=== PATIENT | female | born 1935 | race Two or more races ===

== ENCOUNTER 2017-01-06 20:19 | Inpatient (IN) | payer OTHER ==
--- NOTE | ~2017-01-06 | CT16 ---
[facility] RADIOLOGY TEXT RESULTS PATIENT: QUINCY DORMAN LOCATION: [facility] 575-01 : 35 UNIT #: [id number] AGE: [address]: Nancie Giraldo MD SEX: F ORDER DR: [id number] [facility] [address] [place], [place] [address] [id number] E MR#: [id number] #: [id number] NAME: QUINCY DORMAN : 1935 SEX: F STUDY DATE/TIME: 01/07/2017 7:19 UNIT: [facility] ROOM: STUDY DESCRIPTION: CT Angio Chest for PE Attending Physician: Santino Solomon D.O. Ordering Physician: Mila Sarmiento M.D. Primary Care Physician: [facility] MEDICAL IMAGING REPORT This report is preliminary unless electronic signature is present EXAM CTA chest with contrast PE protocol, 01/07/2017. HISTORY 81-year-old female with hemoptysis for 2 days. COMPARISON None TECHNIQUE Helical scan performed through the chest following the timed bolus administration of IV contrast per PE protocol. Coronal 3-D MIP reconstructions. Sagittal reformatted images. This CT exam was performed with one or more of the following radiation dose reduction techniques: automatic exposure control, adjustment of mA and/or kV according to patient size, and iterative reconstruction. FINDINGS There is adequate opacification of the pulmonary arteries with no filling defects noted. There is mild ectasia of the ascending thoracic aorta measuring 4 cm. Cardiomegaly. No pericardial effusion. No pleural effusions. No pneumothorax. There is some mild emphysematous and chronic fibrotic changes noted in both lungs. Mild dependent bibasilar atelectasis. No focal infiltrates. Incidental scanning through the upper abdomen demonstrates cholecystectomy. No acute bony abnormality. IMPRESSION 1. Negative for pulmonary emboli. 2. Mild ectasia of the ascending thoracic aorta measuring 4 cm. [facility] RADIOLOGY TEXT RESULTS PATIENT: QUINCY DORMAN LOCATION: [facility] 575 : 35 UNIT #: [id number] AGE: [address]: Nancie Giraldo MD SEX: F ORDER DR: 3. Cardiomegaly. 4. Mild chronic-appearing emphysematous and fibrotic changes in both lungs. No focal pulmonary infiltrates. 5. Cholecystectomy. Dictated by... Selwyn Izquierdo M.D. THIS IS AN ELECTRONICALLY VERIFIED REPORT Selwyn Izquierdo M.D. at 01/08/2017 6:20 AM AYO/sayra TD: 01/07/2017 09:32 JOB #: [id number] MEDICAL IMAGING REPORT Page 1 of 1 COPY
--- NOTE | ~2017-01-06 | CO ---
Unit #: [id number] #: [id number] Patient: QUINCY DORMAN [id number] [facility] [address] [facility] [place], [place] [address] [id number] I MR#: [id number] NAME: QUINCY DORMAN ROOM: 575 Age: 81 Sex: F Admission Date: 01/07/2017 : 1935 Attending Physician: Nancie Giraldo M.D. Primary Care Physician: [facility] Consultation Date: 01/07/2017 CONSULTATION REPORT HISTORY OF PRESENT ILLNESS This is an 81-year-old [place] female patient, developed cough with a bloody mucus for over last few days. She also complained of epigastric pain, which is radiated to the substernal area, described as a moderately severe squeezing pain. It did not radiate to arm or neck. She has a history of chronic atrial fibrillation. The patient has a permanent pacemaker by Dr. Torres in 12/2008. She had a generator change in 08/2016. She has hypertension. No history of previous myocardial infarction or congestive heart failure. No history of rheumatic fever or congenital heart disease. PERSONAL HISTORY She is a nonsmoker. FAMILY HISTORY Negative for premature coronary artery disease or sudden . ALLERGIES Lisinopril. PAST SURGICAL HISTORY Bilateral cataract surgery, cholecystectomy, and pacemaker. HOME MEDICATIONS Include oyster shell, amlodipine, aspirin, Eliquis, Toprol-XL, K-Dur, and Lasix. REVIEW OF SYSTEMS No fever, chills, night sweats, or weight loss. All other is negative except as mentioned above. PHYSICAL EXAMINATION VITAL SIGNS: Blood pressure is 161/102, heart rate 73 per minute, respiratory rate 15 per minute. GENERAL APPEARANCE: The patient is well developed. HEENT: Oral mucosa without cyanosis or pallor. No xanthelasma. NECK: No JVD. CARDIOVASCULAR: Irregular rate and rhythm. PMI is nondisplaced on auscultation. S1 and S2 normal. No S3, S4, murmur, rubs, or clicks noted. VASCULAR: Carotid pulses are brisk without bruit. Abdominal aorta without bruit. Femoral and pedal pulses are normal with normal pulse amplitude. LUNGS: Clear to auscultation without rales, rhonchi, or wheezes. No accessory muscle use noted. Unit #: [id number] #: [id number] Patient: QUINCY DORMAN ABDOMEN: Soft and nontender. No hepatosplenomegaly. RECTAL: Deferred. EXTREMITIES: Warm and dry. No cyanosis or clubbing. No pedal edema. MUSCULOSKELETAL: No scoliosis. DERMATOLOGIC: No stasis dermatitis. NEUROLOGIC: Alert and oriented x3. Pleasant affect. DIAGNOSTIC STUDIES LABORATORY RESULTS: Glucose 98, BUN 13, creatinine 0.8, sodium 135, potassium 3.6. Troponin 0.05. WBC 6.1, hemoglobin 14.4, hematocrit 44.6, and platelet count 112,000. IMAGING STUDIES: Chest x-ray; mild interstitial edema, stable cardiomegaly. CT angiogram of the chest; negative for pulmonary embolism. IMPRESSION 1. Cough with a bloody mucus, possible bronchitis. 2. Chest pain, rule out coronary artery disease. 3. Chronic atrial fibrillation. 4. Sick sinus syndrome. 5. History of pacemaker. 6. Hypertension. PLAN We will get an echocardiogram. The patient will be treated with diuretics. We will schedule her for a Lexiscan Cardiolite study in the morning. Thank you for letting me participate in her care. Dictated by... Isac Finney M.D. JAS/tracy TD: 01/07/2017 22:24 JOB #: [id number] CONSULTATION REPORT Page 1 of 1 X Isac Finney MD CONSULTATION REPORT
--- NOTE | ~2017-01-06 | HP ---
Unit #: [id number] #: [id number] Patient: QUINCY DORMAN [id number] [address] [address] [id number] I MR#: [id number] NAME: QUINCY DORMAN ROOM: 30172 Age: 81 Sex: F Admission Date: 01/07/2017 : 1935 Attending Physician: Marissa Dixon M.D. Primary Care Physician: [facility] HISTORY AND PHYSICAL CHIEF COMPLAINT Coughing up blood. 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 The patient presented to the emergency room complaining of coughing up blood associated with chest pain. The patient also complains of headache and cramps in the legs and in the hands. The chest pain has been present for the last few days and has been intermittent and gradually worsening. The patient denies any diaphoresis, shortness of breath or palpitations. PAST MEDICAL HISTORY History of hypertension, migraine, atrial fibrillation. PAST SURGICAL HISTORY History of cholecystectomy, pacemaker placement for bradycardia, cataract surgery, eye surgery. SOCIAL HISTORY The patient denies using tobacco, alcohol or any illicit drug abuse. FAMILY HISTORY Positive for congestive heart failure and aneurysm. ALLERGIES Lisinopril. HOME MEDICATIONS 1. Norvasc. 2. Aspirin. 3. Toprol. 4. Eliquis. 5. K-Dur. 6. Oyster shell. 7. Lasix. REVIEW OF SYSTEMS A 14-point review of systems was performed and only pertinent positive findings are described above. Remaining are negative. PHYSICAL EXAMINATION Unit #: [id number] #: [id number] Patient: QUINCY DORMAN GENERAL APPEARANCE: The patient is lying on a bed not in acute distress. VITAL SIGNS: Temperature 98.4. Pulse 83. Respiratory rate 14. Blood pressure 166/89. Sating 100% at room air. HEENT: Head: Atraumatic, normocephalic. ENT: Pupils equal, round, reacting to light and accommodation. Extraocular movements are intact. NECK: Supple. LUNGS: Decreased air entry at the bases. HEART: (1) rate and rhythm. Positive for murmur. ABDOMEN: Soft. Positive bowel sounds. EXTREMITIES: No cyanosis. No clubbing. NEUROLOGIC: Alert, awake, oriented. No gross focal motor deficit. DIAGNOSTIC STUDIES LABORATORY: Glucose 98, BUN 13, creatinine 0.8, sodium 135, potassium 3.6, chloride 100, bicarb 27, calcium 9.1. BNP 353. Troponin less than 0.03. INR is one. WBC 6.1, hemoglobin 14.4, hematocrit 44.6, platelets 112. UA shows 1+ protein and 0.2 urobilinogen. IMAGING: Chest x-ray shows stable cardiomegaly, mildly increased interstitial markings suggesting a component of mild interstitial edema. CT of the chest shows negative for PE, mild ectasia of the ascending thoracica aorta measuring 4 cm, cardiomegaly and mild chronic appearing emphysematous and fibrotic change in both lungs. No focal pulmonary infiltrate and cholecystectomy. CARDIOVASCULAR: The EKG shows atrial fibrillation. ASSESSMENT 1. Chest pain. 2. Hemoptysis. 3. Atrial fibrillation. PLAN To admit the patient to observation. Continue with the repeat serial troponins and Cardiology consult for the stress test in the morning. Eliquis will be on hold and we will have the Flexeril for the cramps. Further recommendations will follow. Dictated by Farzana Willett TD: 01/07/2017 16:54 JOB #: [id number] HISTORY AND PHYSICAL Page 1 of 1 X X HISTORY AND PHYSICAL
--- NOTE | ~2017-01-06 | CR72 ---
[facility] A Service of [facility] RADIOLOGY TEXT RESULTS PATIENT: QUINCY DORMAN LOCATION: [facility] 575-01 : 35 UNIT #: [id number] AGE: [address]: CHUCK GRAYSON MD SEX: F ORDER DR: [id number] [facility] [address] [place], [place] [address] [id number] E MR#: [id number] Acc #: [id number] NAME: QUINCY DORMAN : 1935 SEX: F STUDY DATE/TIME: 01/07/2017 3:49 UNIT: [facility] ROOM: STUDY DESCRIPTION: CR Chest Single View Portable Attending Physician: Santino Solomon D.O. Ordering Physician: Mila Sarmiento M.D. Primary Care Physician: [facility] MEDICAL IMAGING REPORT This report is preliminary unless electronic signature is present EXAM Single view chest. INDICATION Shortness of air and cough. 3-day duration. Hemoptysis. FINDINGS Heart is mildly enlarged. Central pulmonary vasculature is slightly more prominent. No dense consolidation. No pneumothorax or significant pleural effusion. IMPRESSION 1. Stable cardiomegaly. 2. Mildly increased interstitial markings suggesting a component of mild interstitial edema. Dictated by... Raffaele Lynne M.D. THIS IS AN ELECTRONICALLY VERIFIED REPORT Raffaele Lynne M.D. at 01/07/2017 11:10 PM ALAN/sayra TD: 01/07/2017 08:16 JOB #: [id number] MEDICAL IMAGING REPORT Page 1 of 1 COPY
--- NOTE | ~2017-01-06 | ST ---
Unit #: [id number] #: [id number] Patient: QUINCY DORMAN [id number] [address] [address] [id number] I MR#: [id number] NAME: QUINCY DORMAN : 1935 SEX: F STUDY DATE/TIME: 01/10/2017 UNIT: [facility] ROOM: 575 STUDY DESCRIPTION: Stress test Attending Physician: Popeye Loza M.D. Primary Care Physician: [facility] CARDIOLOGY REPORT EXAM Combined EKG as well as nuclear part of the test. FINDINGS Patient's baseline heart rate is 79 beats per minute. Blood pressure is 170/97. Patient received Lexiscan infusion as per protocol. At peak infusion, heart rate 100 beats per minute and blood pressure 166/88. Patient's baseline EKG showing sinus rhythm with nonspecific ST and T changes. During Lexiscan infusion and recovery, no further ST and T changes. Patient also received 10.46 mCi of Cardiolite at rest and 30.4 mCi of Cardiolite during stress. Both sets of images were compared. Patient shows fairly uniform uptake of radiotracer. No defect was noted. Patient also had gated SPECT scan done, which showed normal LV size and function. No wall motion abnormality detected. Ejection fraction is 67%. INTERPRETATION OF THE TEST 1. EKG part of the test is negative for Lexiscan-induced ischemia. 2. Nuclear part of the test negative for myocardial ischemia. 3. Gated SPECT scan shows normal LV size and function. Ejection fraction 67%. Dictated by... Farzana Frye/bob TD: 01/11/2017 07:36 JOB #: [id number] CARDIOLOGY REPORT Page 1 of 1 X Don Lau MD CARDIOLOGY REPORT
--- NOTE | ~2017-01-06 | TH ---
Unit #: [id number] #: [id number] Patient: QUINCY DORMAN [id number] [address] [address] [id number] I MR#: [id number] NAME: QUINCY DORMAN : 1935 SEX: F STUDY DATE/TIME: 01/10/2017 UNIT: [facility] ROOM: 575 STUDY DESCRIPTION: Cardiolite stres test Attending Physician: Popeye Loza M.D. Primary Care Physician: [facility] CARDIOLOGY REPORT EXAM Cardiolite stress test. FINDINGS Result text under stress test. Please see this report for result text. Dictated by... Farzana Frye/bob TD: 01/11/2017 07:48 JOB #: [id number] CARDIOLOGY REPORT Page 1 of 1 X Don Lau MD CARDIOLOGY REPORT
--- NOTE | ~2017-01-06 | EKG ---
PATIENT: QUINCY DORAMN UNIT #: [id number] Ventricular Rate: 81 BPM Atrial Rate: 54 BPM QRS Duration: 86 ms Q-T Interval: 362 ms QTC Calculation(Bezet): 420 ms Calculated R [place]: 25 degrees Calculated T [place]: -3 degrees Diagnosis Line: Atrial fibrillation Diagnosis Line: Abnormal ECG Diagnosis Line: When compared with ECG of 03-NOV-2015 05:26, Diagnosis Line: Electronic demand pacing is no longer Present Diagnosis Line: Confirmed by MOLLY SHELTON MD ([id number]) on Diagnosis Line: 01/07/2017 4:31:15 PM INTERPRETING MD: NIKITA NEVAREZ
--- NOTE | ~2017-01-06 | DS ---
Unit #: [id number] #: [id number] Patient: QUINCY DORMAN [id number] [facility]. [place], [place] [address] [id number] I MR#: [id number] NAME: QUINCY DORMAN ROOM: 575 Age: 81 Sex: F Admission Date: 01/07/2017 : 1935 Discharge Date: 01/11/2017 Attending Physician: Popeye Loza M.D. Primary Care Physician: [facility] DISCHARGE SUMMARY REASON FOR ADMISSION Coughing up blood. HISTORY OF PRESENT ILLNESS/HOSPITAL COURSE The patient is a very pleasant 81-year-old female originally from [facility] [facility], who speaks very little Swazi. 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 She presented to the emergency department complaining of coughing up blood associated with chest pain and/or discomfort. She was seen and evaluated initially secondary to hemoptysis as well as chest discomfort. She underwent a CT angiogram chest PE protocol which did not reveal any pulmonary emboli. There were no focal pulmonary infiltrates which were noted. Chronic-appearing emphysematous and fibrotic changes were noted. Her initial creatinine was normal at 0.8. We placed consultation to Cardiology services in regards to the same. Cardiology services saw and evaluated the patient. They recommended stress Cardiolite examination. The patient did undergo this on January 10, 2017, which was negative for myocardial ischemia, ejection fraction was noted to be 67%. Please note [facility] Cardiology was consulted to read the same. Secondary to IV contrast used for this CTA chest, the patient did have an increase in her creatinine level with peak creatinine of 1.7; therefore, she was kept in the hospital receiving IV fluids. This morning, her creatinine now stands at 0.8 and her acute kidney injury now appears to be resolved. She has been cleared from a cardiac standpoint for discharge. At the time of discharge, decision in regards to anticoagulation will be deferred to [facility] Cardiology. They will see the patient later this afternoon. FINAL DISCHARGE DIAGNOSES 1. Hemoptysis, now resolved. 2. Chest pain, cardiac ischemia ruled out, pulmonary embolus ruled out. 3. Acute kidney injury secondary to IV contrast, now resolved. 4. History of hypertension. Unit #: [id number] #: [id number] Patient: QUINCY DORMAN 5. Prior history of pacemaker placement. FINAL DISCHARGE MEDICATIONS 1. Metoprolol XL 50 mg p.o. b.i.d. 2. Aspirin 81 mg daily. 3. Os-Charles Plus-D 500 mg p.o. q. day. 4. Tylenol 650 mg p.o. q.6 p.r.n. 5. Decision for anticoagulation currently pending cardiac evaluation. DISCHARGE DISPOSITION Home. Follow-up PCP in 7-10 days for repeat BMP as well as CBC. At the time of discharge, patient's hemoglobin 13.8, creatinine 0.9. Dictated by... Farzana Lawrence/srikanth TD: 01/11/2017 23:34 JOB #: [id number] DISCHARGE SUMMARY Page 1 of 1 X Popeye Loza MD X DISCHARGE SUMMARY
[~2017-01-06 20:19] MED LIST: ADOXA PAK100 MG PO; AMLODIPINE BESY10 MG PO; ASPIRIN81 M2 PO; ATENOLOL25 GM MC; CALCIUM 600 +1 EA15 PO; CLONIDINE HCL0.1 M1; ELIQUIS5 MG PO; K-DUR20 ME1 PO; LASIX PO; LASIX20 MG PO; TOPROL XL PO
[2017-01-07 03:57] LABS: BASOPHIL% 0.3 % (0-2.5); EOSINOPHIL# 0.2 X10e3 (0-0.7); EOSINOPHIL% 2.5 % (0.0-7.0); HEMATOCRIT 44.6 % (35.0-45.0); HEMOGLOBIN 14.4 gm/dL (12.0-16.0); LYMPHOCYTE# 2.2 X10e3 (1.0-3.5); LYMPHOCYTE% 35.6 % (17.0-45.0); MEAN CELL VOLUME 95.4 FL (83-96); MEAN CORPUSCULAR HEMOGLOBIN 30.7 PG (28-34); MEAN CORPUSCULAR HGB CONC 32.2 g/dL (30-36); MEAN PLATELET VOLUME 11.1 FL (6.5-11.5); MONOCYTE# 0.8 X10e3 (0-1.0); MONOCYTE% 12.3 % (3.0-12.0); NEUTROPHIL% 49.3 % (40-75); PLATELET COUNT 112 X10e3 (140-420); RED BLOOD COUNT 4.68 X10e (3.90-5.30); RED CELL DISTRIBUTION WIDTH 13.5 % (11.0-15.5); WHITE BLOOD COUNT 6.1 X10e3 (4.0-10.5)
[2017-01-07 04:00] LABS: DIFF IND NO
[2017-01-07 04:12] LABS: PROTHROMBIN TIME (PATIENT) 10.9 SECONDS (9.6-11.5)
[2017-01-07 04:13] LABS: POC - CKMB 4.3 ng/mL (0.0-7.9); POC - TROPONIN <0.05 ng/mL (<=0.05)
[2017-01-07 04:23] LABS: BUN/CREATININE RATIO 16.25; CALCIUM SERUM 9.1 mg/dL (8.4-10.2); CREATININE SERUM 0.8 mg/dL (0.6-1.4); GLOM FILT RATE Estimated 69.2 mL/min (>60); POTASSIUM 3.6 mmol/L (3.5-5.1)
[2017-01-07 14:19] LABS: URINE SOURCE CLEAN CATCH
[2017-01-07 14:25] LABS: URINE APPEARANCE CLEAR; URINE BILIRUBIN NEG (NEG); URINE BLOOD TRACE (NEG); URINE COLOR YELLOW; URINE GLUCOSE NEG (NEG); URINE KETONE NEG (NEG); URINE LEUKOCYTE ESTERASE NEG (NEG); URINE NITRATE NEG (NEG); URINE PH 5.5 (5-8); URINE PROTEIN 1+ (NEG); URINE SPECIFIC GRAVITY 1.011 (1.003-1.035); URINE UROBILINOGEN 0.2 MG/DL (NEG)
[2017-01-07 14:27] LABS: U HYALINE CASTS AUWI 0-2 /[LPF]; URBCS1 AUWI 0-2 /[HPF] (0-2); URINE BACTERIA AUWI NEG (NEGATIVE); URINE SQUAMOUS EPITHELIAL CELL NONE SEEN /[HPF]; UWBCS1 AUWI 0-2 (0-5)
[2017-01-07 14:32] LABS: CULTURE INDICATED? NO
[2017-01-07 15:18] LABS: ALBUMIN SERUM 4.3 g/dL (3.5-5.0); BILIRUBIN, DIRECT 0.2 mg/dL (0.0-0.2); BILIRUBIN,INDIRECT 1.7 mg/dL (0.0-0.9); BILIRUBIN,TOTAL 1.9 mg/dL (0.2-2.0); PROTEIN TOTAL SERUM 8.4 g/dL (6.0-8.3)
[2017-01-07 15:19] LABS: MB 6.4 ng/ml
[2017-01-07 21:26] LABS: %MB 3.4 % (0.0-4.0); MB 6.7 ng/ml
[2017-01-08 06:39] LABS: BASOPHIL% 0.3 % (0-2.5); EOSINOPHIL# 0.1 X10e3 (0-0.7); EOSINOPHIL% 1.3 % (0.0-7.0); HEMATOCRIT 42.9 % (35.0-45.0); HEMOGLOBIN 13.8 gm/dL (12.0-16.0); LYMPHOCYTE# 2.1 X10e3 (1.0-3.5); LYMPHOCYTE% 30.9 % (17.0-45.0); MEAN CELL VOLUME 94.8 FL (83-96); MEAN CORPUSCULAR HEMOGLOBIN 30.6 PG (28-34); MEAN CORPUSCULAR HGB CONC 32.2 g/dL (30-36); MONOCYTE# 0.9 X10e3 (0-1.0); NEUTROPHIL# 3.8 X10e3 (1.5-7.1); NEUTROPHIL% 54.5 % (40-75); PLATELET COUNT 117 X10e3 (140-420); RED BLOOD COUNT 4.52 X10e (3.90-5.30); RED CELL DISTRIBUTION WIDTH 13.5 % (11.0-15.5); WHITE BLOOD COUNT 6.9 X10e3 (4.0-10.5)
[2017-01-08 06:42] LABS: DIFF IND NO
[2017-01-08 07:03] LABS: BUN/CREATININE RATIO 16.25; CALCIUM SERUM 9.5 mg/dL (8.4-10.2); CREATININE SERUM 1.6 mg/dL (0.6-1.4); GLOM FILT RATE Estimated 29.9 mL/min (>60); POTASSIUM 4.2 mmol/L (3.5-5.1)
[2017-01-09 07:42] LABS: BUN/CREATININE RATIO 22.94; CALCIUM SERUM 9.9 mg/dL (8.4-10.2); CREATININE SERUM 1.7 mg/dL (0.6-1.4); GLOM FILT RATE Estimated 27.8 mL/min (>60); MAGNESIUM 1.9 mg/dL (1.6-3.0)
[2017-01-09 12:04] LABS: BASOPHIL% 0.6 % (0-2.5); EOSINOPHIL# 0.1 X10e3 (0-0.7); EOSINOPHIL% 1.9 % (0.0-7.0); HEMATOCRIT 42.5 % (35.0-45.0); HEMOGLOBIN 13.8 gm/dL (12.0-16.0); LYMPHOCYTE# 2.1 X10e3 (1.0-3.5); LYMPHOCYTE% 35.3 % (17.0-45.0); MEAN CELL VOLUME 94.7 FL (83-96); MEAN CORPUSCULAR HEMOGLOBIN 30.8 PG (28-34); MEAN CORPUSCULAR HGB CONC 32.5 g/dL (30-36); MEAN PLATELET VOLUME 11.1 FL (6.5-11.5); MONOCYTE# 0.8 X10e3 (0-1.0); NEUTROPHIL% 49.2 % (40-75); PLATELET COUNT 114 X10e3 (140-420); RED BLOOD COUNT 4.49 X10e (3.90-5.30); RED CELL DISTRIBUTION WIDTH 13.5 % (11.0-15.5)
[2017-01-09 12:06] LABS: DIFF IND NO
[2017-01-11 06:07] LABS: BUN/CREATININE RATIO 21.11; CALCIUM SERUM 8.6 mg/dL (8.4-10.2); CREATININE SERUM 0.9 mg/dL (0.6-1.4); POTASSIUM 4.2 mmol/L (3.5-5.1)
[2017-01-11] MEDS ORDERED: ACETAMINOPHEN PO (11:24)
== END 2017-01-11 16:21 | disposition home or self-care (01) | DRG 683 ==
LOC: CED 20:19 → CFTX 01-07 01:35 → C5C 01-07 10:15 → CED 01-07 10:15 → C5C 01-07 10:15 → CEDOF 01-07 10:15 → CED 01-07 10:43 → C5C 01-07 17:57 → CEDOF 01-07 17:57 → C5C 01-08 05:38
PROVIDERS: Emergency Medicine; Family Medicine; Internal Medicine; Internal Medicine Cardiovascular Disease
PROC: B246YZZ Ultrasonography of Right and Left Heart using Other Contrast (ICD-10-PCS; principal; 2017-01-07)
PROC: B32TYZZ Computerized Tomography (CT Scan) of Left Pulmonary Artery using Other Contrast (ICD-10-PCS; 2017-01-09)
PROC: B32SYZZ Computerized Tomography (CT Scan) of Right Pulmonary Artery using Other Contrast (ICD-10-PCS; 2017-01-09)
DX: N17.9 Acute kidney failure, unspecified (principal); R04.2 Hemoptysis; I50.32 Chronic diastolic (congestive) heart failure; I48.2 Chronic atrial fibrillation; R07.9 Chest pain, unspecified; Z79.01 Long term (current) use of anticoagulants; Z98.49 Cataract extraction status, unspecified eye; Z90.49 Acquired absence of other specified parts of digestive tract; Z95.0 Presence of cardiac pacemaker; Z79.82 Long term (current) use of aspirin
CPT/HCPCS: 71010; 71275; 78452; 80048; 80076; 81003; 82550; 82553; 83690; 83735; 83880; 84484; 85025; 85610; 93005; 93017; 93306; 99285; A9500; C9113; J2785; Q9967